=== PATIENT | male | born 1975 | race Hispanic/Latino ===

== ENCOUNTER 2016-04-27 18:50 | Emergency (ER) | payer MEDICAID ==
--- NOTE | 2016-04-28 00:01 | Emergency Department Report ---
HPI - General Chief Complaint: Sore Throat Time Seen by Provider: 04/27/16 23:55 - HPI HPI: 41-year-old male past medical history ulcerative colitis, history of colectomy presents with complaint of 3 days of worsening earache bilateral. Patient states earache started on left side, complaining of sensation of ear popping and ear pressure mild sore throat denies any cough, positive sinus pressure. Denies any fever or chills. ED Past Medical Hx - Medications Home Medications: Home Medications Medication Instructions Recorded Confirmed Last Taken Type Amoxicillin 500 mg PO TID #21 capsule 04/28/16 Unknown Rx Fluticasone [Flonase] 1 spray NS QDAY #1 bottle 04/28/16 Unknown Rx Ibuprofen [Motrin] 400 mg PO Q8H PRN #20 tablet 04/28/16 Unknown Rx Neomy/Polymyx B/Hc (Otic) Soln 4 drops OTIC TID #1 bottle 04/28/16 Unknown Rx [Cortisporin (Otic) Soln] ED Review of Systems ROS: Stated complaint: EAR PAIN Other details as noted in HPI Constitutional: denies: chills, fever Eyes: denies: eye pain, eye discharge, vision change ENT: ear pain. denies: throat pain Respiratory: denies: cough, shortness of breath, wheezing Cardiovascular: denies: chest pain, palpitations Endocrine: no symptoms reported Gastrointestinal: denies: abdominal pain, nausea, diarrhea Genitourinary: denies: urgency, dysuria Musculoskeletal: denies: back pain, joint swelling, arthralgia Skin: denies: rash, lesions Neurological: denies: headache, weakness, paresthesias Psychiatric: denies: anxiety, depression Hematological/Lymphatic: denies: easy bleeding, easy bruising Physical Exam - Physical Exam Vital Signs: Vital Signs 04/27/16 20:01 Temperature 98.2 F Pulse Rate 68 Respiratory 20 Rate Blood Pressure 118/87 O2 Sat by Pulse 95 Oximetry General: General: Well appearing, well nourished, in no distress. Oriented x 3, normal mood and affect .Ambulating without difficulty.: Head: Normocephalic, atraumatic, no visible or palpable masses, depressions, or scaring. Eyes: Visual acuity intact, conjunctiva clear, sclera non-icteric, EOM intact, PERRLA Ears: EACs injected, erythematous, TMs injected bilaterally, mild effusions, hearing intact. Nose: No external lesions, mucosa non-inflamed, septum and turbinates normal Pharynx: Mucosa non-inflamed, no tonsillar hypertrophy or exudate Neck: Supple, without lesions, bruits, or adenopathy, thyroid non-enlarged and non-tender Heart: No cardiomegaly or thrills; regular rate and rhythm, no murmur or gallop Lungs: Clear to auscultation and percussion Abdomen: Bowel sounds normal, no tenderness, organomegaly, masses, or hernia Back: Spine normal without deformity or tenderness, no CVA tenderness Extremities: No amputations or deformities, cyanosis, edema or varicosities, peripheral pulses intact Musculoskeletal: Normal gait and station. No misalignment, asymmetry, crepitation, defects, tenderness, masses, effusions, decreased range of motion, instability, atrophy or abnormal strength or tone in the head, neck, spine, ribs , pelvis or extremities. Neurologic: CN 2-12 normal. ED Course Vital Signs 04/27/16 20:01 Temperature 98.2 F Pulse Rate 68 Respiratory 20 Rate Blood Pressure 118/87 O2 Sat by Pulse 95 Oximetry ED Medical Decision Making - Medical Decision Making A/P: Otitis media acute and otits externa 1- amoxicillin 3 times a day x7 days, motrin PRN, floanse nasal spray for sinus congestion 2- corticopsorin drops 3- follow-up with primary care doctor, patient advised to return to ED for any pus drainage, hearing loss, bleeding from ears Critical care attestation.: If time is entered above; I have spent that time in minutes in the direct care of this critically ill patient, excluding procedure time. ED Disposition Clinical Impression: Otitis media Qualifiers: Otitis media type: unspecified Laterality: bilateral Chronicity: unspecified Qualified Code(s): H66.93 - Otitis media, unspecified, bilateral Disposition: DISCHARGED TO HOME OR SELFCARE Is pt being admited?: No Does the pt Need Aspirin: No Condition: Stable Instructions: Otitis Media (ED), Otitis Externa (ED) Prescriptions: Amoxicillin 500 mg PO TID #21 capsule Neomy/Polymyx B/Hc (Otic) Soln [Cortisporin (Otic) Soln] 4 drops OTIC TID #1 bottle Fluticasone [Flonase] 1 spray NS QDAY #1 bottle Ibuprofen [Motrin] 400 mg PO Q8H PRN #20 tablet PRN Reason: Pain Referrals: PRIMARY CARE, [Primary Care Provider] - 3-5 Days [facility] [Outside] - 3-5 Days ANTOINE CAMARENA MD [Staff Physician] - 3-5 Days Forms: Work/School Release Form(ED), Accompanied Note Time of Disposition: 00:01
[2016-04-28 00:16] VITALS: BP 120/83
== END 2016-04-28 00:17 | disposition home or self-care (01) ==
LOC: ED 18:50
DX: H66.93 Otitis media, unspecified, bilateral (principal)
CPT/HCPCS: 99282